=== PATIENT | female | born 1985 | race Two or more races ===

== ENCOUNTER 2019-03-31 09:42 | Outpatient (CLI) | payer OTHER | END 2019-03-31 10:11 | disposition home or self-care (01) | LOC: NUCLEAR 09:42 | DX: M25.50 Pain in unspecified joint (principal) | CPT/HCPCS: 78306; A9503 ==

== ENCOUNTER 2019-09-14 14:35 | Emergency (ER) | payer OTHER ==
[~2019-09-14] VITALS: Ht 170.2 cm; Wt 121.6 kg
[2019-09-14] MEDS ORDERED: CYMBALTA20 MG PO (14:46)
[2019-09-14] MEDS ORDERED: DOLOGEN CAPLET1 EACH PO (18:02)
[2019-09-14] MEDS ORDERED: TUSNEL LIQUID178 ML PO (18:02)
[2019-09-14] MEDS ORDERED: ZITHROMAX500 MG PO (18:02)
== END 2019-09-14 20:17 | disposition home or self-care (01) ==
LOC: ER 14:35
DX: B33.8 Other specified viral diseases (principal)

== ENCOUNTER 2020-04-12 14:11 | Emergency (ER) | payer OTHER ==
[~2020-04-12] VITALS: Ht 170.2 cm; Wt 117.9 kg
[~2020-04-12 14:11] MED LIST: CYMBALTA20 MG PO; DOLOGEN CAPLET1 EACH PO; TUSNEL LIQUID178 ML PO; ZITHROMAX500 MG PO
[2020-04-12] MEDS ORDERED: TRI-SPRINTEC T1 EACH (15:04)
[2020-04-12] MEDS ORDERED: LEVSIN/SL0.125 MG SL (21:06)
[2020-04-12] MEDS ORDERED: PEPCID AC20 MG PO (21:06)
== END 2020-04-12 21:58 | disposition home or self-care (01) ==
LOC: ER 14:11
DX: K52.9 Noninfective gastroenteritis and colitis, unspecified (principal)

== ENCOUNTER 2022-03-24 17:07 | Emergency (ER) | payer OTHER ==
[~2022-03-24] VITALS: Ht 170.2 cm; Wt 117.9 kg
[~2022-03-24 17:07] MED LIST changes: +LEVSIN/SL0.125 MG SL; +PEPCID AC20 MG PO; +TRI-SPRINTEC T1 EACH
[2022-03-25] MEDS ORDERED: MUCINEX DM ER1 EAC1 PO (00:16)
[2022-03-25] MEDS ORDERED: ZITHROMAX500 MG PO (00:28)
== END 2022-03-25 01:55 | disposition home or self-care (01) ==
LOC: ER 17:07
DX: J06.9 Acute upper respiratory infection, unspecified (principal)

== ENCOUNTER 2022-11-12 12:19 | Emergency (ER) | payer OTHER ==
[~2022-11-12] VITALS: Ht 170.2 cm; Wt 110.7 kg
[~2022-11-12 12:19] MED LIST changes: +MUCINEX DM ER1 EAC1 PO
[2022-11-12] MEDS ORDERED: IPRAT-ALBUT 0.5-3 ML IH (14:06)
[2022-11-12] MEDS ORDERED: MEDROLPACK PO (14:06)
== END 2022-11-12 14:17 | disposition home or self-care (01) ==
LOC: ER 12:19
DX: J06.9 Acute upper respiratory infection, unspecified (principal); R05.8 Other specified cough; Z88.6 Allergy status to analgesic agent

== ENCOUNTER 2023-05-06 12:43 | Emergency (ER) | payer OTHER ==
[~2023-05-06] VITALS: Ht 170.2 cm; Wt 117.9 kg
[~2023-05-06 12:43] MED LIST changes: +IPRAT-ALBUT 0.5-3 ML IH; +MEDROLPACK PO
== END 2023-05-06 16:22 | disposition home or self-care (01) ==
LOC: ER 12:43
DX: B34.9 Viral infection, unspecified (principal); Z20.822 Contact with and (suspected) exposure to COVID-19; Z88.8 Allergy status to other drugs, medicaments and biological substances

== ENCOUNTER 2024-02-03 15:21 | Emergency (ER) | payer OTHER ==
[~2024-02-03] VITALS: Ht 170.2 cm; Wt 122.5 kg
[2024-02-03] MEDS ORDERED: TRAMADOL HCL 50 MG TABLET PO ONE (16:30)
[2024-02-03] MEDS ORDERED: 0.9 % SODIUM CHLORIDE 1,000 ML IV ONE (16:30)
[2024-02-03] MEDS ORDERED: BENZONATATE 100 MG CAPSULE PO ONE (16:30)
[2024-02-03] MEDS ORDERED: LEVALBUTEROL HCL 0.63 MG/3 ML SOLUTION IH ONE ×2 (16:30→17:11)
[2024-02-03] MEDS ORDERED: CEFTRIAXONE SODIUM 1,000 MG VIAL IM ONE (17:00)
[2024-02-03] MEDS ORDERED: CEFTRIAXONE SODIUM 1,000 MG VIAL ONE (17:05)
[2024-02-03 17:14] LABS: PH,URINE 5.5 (5.0-8.0); URINE APPEARANCE Clear; URINE BILIRRUBIN Negative (NEGATIVE); URINE BLOOD Negative; URINE COLOR Yellow; URINE GLUCOSE Negative (NEGATIVE); URINE LEUKOCYTE Negative; URINE NITRATE Negative; URINE PROTEIN Negative (NEGATIVE); URINE UROBILINOGEN 0.2 E.U./dl
[2024-02-03 17:15] LABS: URINE BACTERIA 1600.1 uL (0.0-1933); URINE EPITHELIAL CELLS 51.1 uL (0.0-38.8); URINE RBC 9.9 uL (0.0-20.8); URINE WBC 24.7 uL (0.0-23.2)
[2024-02-03 17:19] LABS: HEMATOCRIT 37.6 % (36.0-45.00); HEMOGLOBIN 12.6 g/dL (12.0-15.00); MEAN CORPUSCULAR HEMOGLOBIN 26.1 pg (27.00-32.0); MEAN CORPUSCULAR HGB CONC 33.4 g/dl (32.0-36.0); PLATELET COUNT 433 K/uL (150-450); RED BLOOD COUNT 4.82 M/uL (4.00-6.00); RED CELL DISTRIBUTION WIDTH 14.7 % (11.5-14.5)
[2024-02-03 17:37] LABS: ALBUMIN 3.3 gm/dL (3.4-5.0); BILIRUBIN TOTAL 0.28 mg/dL (0.3-1.2); CALCIUM 8.6 mg/dL (8.5-10.1); CREATININE SERUM 1.18 mg/dL (0.55-1.02); GFR 51.26; GLOBULINA 4.1 G/DL (2.4-3.5); POTASSIUM 3.58 mEq/L (3.5-5.1); TOTAL PROTEIN 7.4 gm/dL (6.4-8.2)
== END 2024-02-03 19:55 | disposition home or self-care (01) ==
LOC: ER 15:22
PROVIDERS: General Practice
DX: R53.81 Other malaise (principal); J00 Acute nasopharyngitis [common cold]; Z20.822 Contact with and (suspected) exposure to COVID-19; Z88.6 Allergy status to analgesic agent

== ENCOUNTER 2024-11-09 05:47 | Day surgery (SDC) | payer OTHER ==
[2024-11-09] MEDS ORDERED: fentaNYL CITRATE 50 MCG/ML AMPUL IV ONE (08:00)
[2024-11-09] MEDS ORDERED: DIPHENHYDRAMINE HCL 50 MG/ML VIAL 1ML IV ONE (08:00)
[2024-11-09] MEDS ORDERED: MIDAZOLAM HCL/PF 5 MG/ML VIAL IV ONE (08:00)
== END 2024-11-09 09:35 | disposition home or self-care (01) ==
LOC: AMB-ENDOS 05:47
PROVIDERS: ATTEND Surgery
DX: K29.00 Acute gastritis without bleeding (principal); D13.1 Benign neoplasm of stomach; E66.09 Other obesity due to excess calories; K44.9 Diaphragmatic hernia without obstruction or gangrene; Z88.6 Allergy status to analgesic agent